=== PATIENT | male | born 1940 | race Caucasian/White ===

== ENCOUNTER 2025-02-17 12:20 | Inpatient (IN) | payer BC, MEDICARE ==
[2025-02-17] VITALS: BP 118/63; TEMP 98.1; O2SAT 93
[~2025-02-17] VITALS: Ht 177.8 cm; Wt 97.5 kg
[2025-02-17] MEDS ORDERED: FENTANYL PF 100MCG/2ML AMPUL ONE (13:01)
[2025-02-17 13:02] LABS: BASOPHILS # (AUTO) 0.1 K/uL (0.0-0.2); BASOPHILS % (AUTO) 2.1 % (0.0-2.0); EOSINOPHILS # (AUTO) 0.1 K/uL (0.0-0.7); EOSINOPHILS % (AUTO) 3.9 % (0.0-6.0); HEMATOCRIT 25 % (39-51); HEMOGLOBIN 8.1 g/dL (13.5-17.5); LYMPHOCYTES # (AUTO) 0.7 K/uL (0.8-4.8); LYMPHOCYTES % (AUTO) 19.1 % (20.0-44.0); MEAN CORPUSCULAR HEMOGLOBIN 29 PG (26.0-33.0); MEAN CORPUSCULAR HGB CONC 32 g/dl (31.0-36.0); MEAN CORPUSCULAR VOLUME 89 fL (80-96); MONOCYTES # (AUTO) 0.3 K/uL (0.1-1.30); MONOCYTES % (AUTO) 8.6 % (2.0-12.0); NEUTROPHILS # (AUTO) 2.5 K/uL (1.8-8.9); NEUTROPHILS % (AUTO) 66.3 % (43.0-81.0); PLATELET COUNT (AUTO) 214 K/uL (150-450); RED BLOOD CELL COUNT(AUTO) 2.83 MIL/uL (4.5-6.0); RED CELL DISTRIBUTION WIDTH 16.4 % (11.5-15.0); WHITE BLOOD COUNT (AUTO) 3.7 K/uL (4.3-11.0)
[2025-02-17] MEDS: FENTANYL PF 100MCG/2ML AMPUL IV ONE (13:07)
[2025-02-17 13:13] LABS: CALCIUM, SERUM 8.7 mg/dL (8.5-10.1); POTASSIUM 5.8 mmol/L (3.5-5.1)
[2025-02-17 13:19] LABS: ALBUMIN 3.4 g/dL (3.4-5.0); BILIRUBIN,DIRECT 0.2 mg/dL (0.0-0.2); BILIRUBIN,TOTAL 0.4 mg/dL (0.2-1.0); TOTAL PROTEIN, SERUM 6.5 g/dL (6.4-8.2)
[2025-02-17 13:31] LABS: INR 1.12 (0.91-1.10); PARTIAL THROMBOPLASTIN TIME 29.6 SEC (24.3-34.3); PROTHROMBIN TIME 11.8 SECS (9.2-11.1)
[2025-02-17] MEDS ORDERED: MAG HYDROX/AL HYDROX/SIMETH 30 ML UDC PO PRN (14:00)
[2025-02-17] MEDS ORDERED: IV NS 0.9% 1,000 ML IV PRN (14:00)
[2025-02-17] MEDS ORDERED: ONDANSETRON HCL/PF 4 MG/2 ML VIAL IVP PRN (14:00)
[2025-02-17] MEDS ORDERED: SODIUM ZIRCONIUM CYCLOSILICATE 10 GM POWD.PACK PO ONE (14:00)
[2025-02-17] MEDS ORDERED: MAGNESIUM HYDROXIDE 30 ML UDC PO PRN (14:00)
[2025-02-17] MEDS ORDERED: Z GUARD REMEDY 4 OZ OINT TP PRN (14:00)
[2025-02-17] MEDS ORDERED: AMLO-212 PO (14:21)
[2025-02-17] MEDS ORDERED: CITA20TA16 PO (14:21)
[2025-02-17] MEDS ORDERED: LISI40TA13 PO (14:21)
[2025-02-17] MEDS ORDERED: APIX5TAB PO (14:21)
[2025-02-17] MEDS ORDERED: FURO40TA5 PO (14:21)
[2025-02-17] MEDS ORDERED: ATOR10TA PO (14:21)
[2025-02-17] MEDS ORDERED: DILT120C47 PO (14:21)
[2025-02-17] MEDS: IV NS 0.9% 1,000 ML BAG IV ONE (14:29)
[2025-02-17] MEDS: SODIUM ZIRCONIUM CYCLOSILICATE 10 GM POWD.PACK PO ONE (14:30)
[2025-02-17] MEDS ORDERED: MORPHINE SULFATE INJ 2 MG/ML DISP.SYRIN ONE (15:04)
[2025-02-17] MEDS: MORPHINE SULFATE INJ 2 MG/ML DISP.SYRIN IV ONE (15:08)
[2025-02-17 16:20] VITALS: BP 137/58; TEMP 98.1; O2SAT 95
[2025-02-17] MEDS: HYDROCODONE/APAP 10/325MG TABLET PO PRN (17:08)
[2025-02-17 17:43] LABS: CALCIUM, SERUM 8.3 mg/dL (8.5-10.1)
[2025-02-17 20:00] VITALS: TEMP 98.1
[2025-02-17] MEDS: HEPARIN SODIUM, PORCINE 5000 UNITS/1 ML VIAL SQ SCH (21:00)
[2025-02-18 04:54] VITALS: BP 116/59; TEMP 98; O2SAT 92
[2025-02-18 06:47] LABS: BASOPHILS % (AUTO) 0.9 % (0.0-2.0); EOSINOPHILS # (AUTO) 0.1 K/uL (0.0-0.7); EOSINOPHILS % (AUTO) 1.2 % (0.0-6.0); HEMATOCRIT 24 % (39-51); HEMOGLOBIN 7.5 g/dL (13.5-17.5); LYMPHOCYTES # (AUTO) 0.5 K/uL (0.8-4.8); LYMPHOCYTES % (AUTO) 10.1 % (20.0-44.0); MEAN CORPUSCULAR HEMOGLOBIN 29 PG (26.0-33.0); MEAN CORPUSCULAR HGB CONC 32 g/dl (31.0-36.0); MEAN CORPUSCULAR VOLUME 90 fL (80-96); MONOCYTES # (AUTO) 0.4 K/uL (0.1-1.30); MONOCYTES % (AUTO) 8.3 % (2.0-12.0); NEUTROPHILS # (AUTO) 3.7 K/uL (1.8-8.9); NEUTROPHILS % (AUTO) 79.5 % (43.0-81.0); PLATELET COUNT (AUTO) 196 K/uL (150-450); RED BLOOD CELL COUNT(AUTO) 2.63 MIL/uL (4.5-6.0); RED CELL DISTRIBUTION WIDTH 15.9 % (11.5-15.0); WHITE BLOOD COUNT (AUTO) 4.6 K/uL (4.3-11.0)
[2025-02-18 07:14] LABS: CALCIUM, SERUM 8.2 mg/dL (8.5-10.1); CREATININE 2.3 mg/dL (0.6-1.3); MAGNESIUM 2.5 mg/dL (1.8-2.4); PHOSPHORUS 5.3 mg/dL (2.5-4.9)
[2025-02-18 07:37] LABS: POTASSIUM 6.2 mmol/L (3.5-5.1)
[2025-02-18 08:14] VITALS: BP 112/43; TEMP 98.8; O2SAT 90
[2025-02-18] MEDS: CITALOPRAM HYDROBROMIDE 20 MG TABLET PO SCH (08:28)
[2025-02-18] MEDS: SODIUM POLYSTYRENE SULFONATE 15 G/60 ML BOTTLE PO ONE ×2 (08:28→16:10)
[2025-02-18] MEDS: ATORVASTATIN 10 MG TABLET PO SCH (08:28)
[2025-02-18] MEDS: AMLODIPINE BESYLATE 5 MG TABLET PO SCH (09:00)
[2025-02-18] MEDS: DILTIAZEM HCL CD 120 MG PO SCH (09:00)
[2025-02-18] MEDS ORDERED: DILTIAZEM SR 60 MG PO SCH (09:00)
[2025-02-18 09:49] LABS: IRON, SERUM 23 ug/dl (50-175); TOTAL IRON BINDING CAPACITY 290 ug/dl (250-450)
[2025-02-18] MEDS: BUMETANIDE INJ 8 MG in IV NS 0.9% 48 ML IV ONE (09:53)
[2025-02-18 10:38] LABS: CHOLESTEROL 89 mg/dL (<200); FERRITIN 42 ng/mL (8-388); HDL CHOLESTEROL 57 mg/dL (40-60); LDL 30 mg/dL (0-99); TRIGLYCERIDES 55 mg/dL (30-150)
[2025-02-18 12:00] VITALS: BP 117/57; TEMP 97.2; O2SAT 95
[2025-02-18] MEDS: MORPHINE SULFATE INJ 2 MG/ML DISP.SYRIN IV PRN (13:00)
[2025-02-18 13:22] LABS: CALCIUM, SERUM 8.4 mg/dL (8.5-10.1); CREATININE 2.6 mg/dL (0.6-1.3)
[2025-02-18 16:00] VITALS: BP 118/55; TEMP 98.6; O2SAT 92
[2025-02-18 20:00] VITALS: BP 103/69; TEMP 99; O2SAT 96
[2025-02-18 23:19] LABS: ABG OXYGEN SATURATION 91.9 % (94.0-98.0); ABG PCO2 51.4 mmHg (35.0-48.0); ABG PH 7.109 (7.350-7.450); ABG PO2 77.1 mmHg (83.0-108.0); ABG TOTAL HEMOGLOBIN 8.8 G/dL (13.5-17.5); COHb 0.1 % (0.5-1.5); MetHb 0.1 % (0.0-1.5); O2Hb 91.7 % (94.0-97.0); SITE, ABG LEFT BRACHIAL
[2025-02-18 23:45] LABS: BASOPHILS # (AUTO) 0.1 K/uL (0.0-0.2); BASOPHILS % (AUTO) 0.7 % (0.0-2.0); EOSINOPHILS % (AUTO) 0.1 % (0.0-6.0); HEMATOCRIT 27 % (39-51); HEMOGLOBIN 8.3 g/dL (13.5-17.5); LYMPHOCYTES # (AUTO) 0.3 K/uL (0.8-4.8); LYMPHOCYTES % (AUTO) 3.9 % (20.0-44.0); MEAN CORPUSCULAR HEMOGLOBIN 29 PG (26.0-33.0); MEAN CORPUSCULAR HGB CONC 31 g/dl (31.0-36.0); MEAN CORPUSCULAR VOLUME 92 fL (80-96); MONOCYTES # (AUTO) 0.5 K/uL (0.1-1.30); MONOCYTES % (AUTO) 5.6 % (2.0-12.0); NEUTROPHILS # (AUTO) 7.5 K/uL (1.8-8.9); NEUTROPHILS % (AUTO) 89.7 % (43.0-81.0); PLATELET COUNT (AUTO) 238 K/uL (150-450); RED BLOOD CELL COUNT(AUTO) 2.91 MIL/uL (4.5-6.0); RED CELL DISTRIBUTION WIDTH 16.9 % (11.5-15.0); WHITE BLOOD COUNT (AUTO) 8.4 K/uL (4.3-11.0)
[2025-02-18 23:54] LABS: CALCIUM, SERUM 8.4 mg/dL (8.5-10.1); CREATININE 3.2 mg/dL (0.6-1.3); POTASSIUM 5.6 mmol/L (3.5-5.1)
[2025-02-19] VITALS (67 sets, daily range): BP systolic 83–119; BP diastolic 43–71; TEMP 98–100.8; O2SAT 95–100
[2025-02-19] MEDS: SODIUM BICARBONATE SYR 50 MEQ/50 ML DISP.SYRIN IV ONE
[2025-02-19] MEDS: SODIUM BICARBONATE SYR 100 MEQ in IV D5W 1,000 ML IV SCH (01:18)
[2025-02-19] MEDS: ACETAMINOPHEN 325 MG TABLET PO PRN (02:30)
[2025-02-19] MEDS: NOREPINEPHRINE 8MG/250ML RTU 0 ML IV ONE (04:00)
[2025-02-19 04:17] LABS: APPEARANCE,URINE CLEAR (CLEAR); BILIRUBIN,URINE NEGATIVE (NEGATIVE); BLOOD, URINE NEGATIVE Ery/uL (NEGATIVE); COLOR,URINE YELLOW (YELLOW); KETONES,URINE NEGATIVE (NEGATIVE); LEUKOCYTE ESTERASE ,URINE NEGATIVE (NEGATIVE); NITRITE, URINE NEGATIVE (NEGATIVE); PH,URINE 5.5 (5.0-8.0); PROTEIN,URINE NEGATIVE (NEGATIVE); UGLUCOSE NEGATIVE (NEGATIVE); UROBILINOGEN,URINE 0.2 EU/dL (0.2)
[2025-02-19] MEDS: NOREPINEPHRINE 4 MG/4 ML AMPUL IV ONE (04:18)
[2025-02-19] MEDS: NOREPINEPHRINE 8 MG in IV D5W 242 ML IV PRN (04:19)
[2025-02-19 04:28] LABS: ABG BASE EXCESS -8.2 mmol/L (-2.0-3.0); ABG OXYGEN SATURATION 98.7 % (94.0-98.0); ABG PCO2 38.8 mmHg (35.0-48.0); ABG PH 7.281 (7.350-7.450); ABG PO2 163.2 mmHg (83.0-108.0); ABG TOTAL HEMOGLOBIN 8.3 G/dL (13.5-17.5); COHb 0.3 % (0.5-1.5); MetHb 0.2 % (0.0-1.5); O2Hb 98.2 % (94.0-97.0); SITE, ABG LEFT BRACHIAL
[2025-02-19 04:33] LABS: BILIRUBIN,TOTAL 0.5 mg/dL (0.2-1.0); CALCIUM, SERUM 8.2 mg/dL (8.5-10.1); CREATININE 3.3 mg/dL (0.6-1.3); MAGNESIUM 2.5 mg/dL (1.8-2.4); POTASSIUM 5.1 mmol/L (3.5-5.1); TOTAL PROTEIN, SERUM 6.1 g/dL (6.4-8.2)
[2025-02-19 04:38] LABS: BASOPHILS % (AUTO) 0.2 % (0.0-2.0); HEMATOCRIT 25 % (39-51); HEMOGLOBIN 7.7 g/dL (13.5-17.5); LYMPHOCYTES # (AUTO) 0.2 K/uL (0.8-4.8); MEAN CORPUSCULAR HEMOGLOBIN 28 PG (26.0-33.0); MEAN CORPUSCULAR HGB CONC 31 g/dl (31.0-36.0); MEAN CORPUSCULAR VOLUME 92 fL (80-96); MONOCYTES # (AUTO) 0.5 K/uL (0.1-1.30); MONOCYTES % (AUTO) 6.5 % (2.0-12.0); NEUTROPHILS % (AUTO) 90.3 % (43.0-81.0); PLATELET COUNT (AUTO) 184 K/uL (150-450); RED BLOOD CELL COUNT(AUTO) 2.73 MIL/uL (4.5-6.0); RED CELL DISTRIBUTION WIDTH 16.2 % (11.5-15.0); WHITE BLOOD COUNT (AUTO) 7.7 K/uL (4.3-11.0)
[2025-02-19] MEDS: Sodium Bicarbonate 100 MEQ in IV D5W 1,000 ML IV SCH (11:19)
[2025-02-19 12:12] LABS: INR 1.23 (0.91-1.10); PROTHROMBIN TIME 12.9 SECS (9.2-11.1)
[2025-02-19] MEDS ORDERED: Sodium Bicarbonate 100 MEQ in IV D5W 1,000 ML IV SCH (20:00)
[2025-02-20] VITALS (44 sets, daily range): BP systolic 74–134; BP diastolic 44–75; TEMP 98.3–99.2; O2SAT 92–99
[2025-02-20] MEDS: SODIUM BICARBONATE SYR 50 MEQ/50 ML DISP.SYRIN ONE (01:10)
[2025-02-20 05:12] LABS: PTH, INTACT 66 pg/mL (15-65)
[2025-02-21] VITALS: BP 95/57; TEMP 99; O2SAT 94
[2025-02-21 04:00] VITALS: BP 103/50; TEMP 98.6; O2SAT 100
[2025-02-21 06:52] LABS: BASOPHILS % (AUTO) 0.3 % (0.0-2.0); EOSINOPHILS # (AUTO) 0.2 K/uL (0.0-0.7); EOSINOPHILS % (AUTO) 2.8 % (0.0-6.0); HEMATOCRIT 25 % (39-51); HEMOGLOBIN 8.1 g/dL (13.5-17.5); LYMPHOCYTES # (AUTO) 0.4 K/uL (0.8-4.8); LYMPHOCYTES % (AUTO) 6.6 % (20.0-44.0); MEAN CORPUSCULAR HEMOGLOBIN 28 PG (26.0-33.0); MEAN CORPUSCULAR HGB CONC 33 g/dl (31.0-36.0); MEAN CORPUSCULAR VOLUME 85 fL (80-96); MONOCYTES # (AUTO) 0.6 K/uL (0.1-1.30); NEUTROPHILS # (AUTO) 5.3 K/uL (1.8-8.9); NEUTROPHILS % (AUTO) 81.3 % (43.0-81.0); PLATELET COUNT (AUTO) 179 K/uL (150-450); RED BLOOD CELL COUNT(AUTO) 2.91 MIL/uL (4.5-6.0); RED CELL DISTRIBUTION WIDTH 16.1 % (11.5-15.0); WHITE BLOOD COUNT (AUTO) 6.5 K/uL (4.3-11.0)
[2025-02-21 08:00] VITALS: BP 114/53; TEMP 97.9; O2SAT 100
[2025-02-21 08:13] LABS: ALANINE AMINOTRANSFERASE 17 U/L (12-78); ALBUMIN 2.4 g/dL (3.4-5.0); ALKALINE PHOSPHATASE 70 U/L (46-116); ASPARTATE AMINOTRANSFERASE 33 U/L (15-37); BILIRUBIN,TOTAL 0.7 mg/dL (0.2-1.0); CALCIUM, SERUM 7.7 mg/dL (8.5-10.1); CARBON DIOXIDE 24 mmol/L (21-32); CHLORIDE 105 mmol/L (98-107); CREATININE 3.6 mg/dL (0.6-1.3); GLUCOSE 102 mg/dL (74-106); MAGNESIUM 2.1 mg/dL (1.8-2.4); PHOSPHORUS 4.8 mg/dL (2.5-4.9); POTASSIUM 4.1 mmol/L (3.5-5.1); SODIUM SERUM 137 mmol/L (136-145); TOTAL PROTEIN, SERUM 5.4 g/dL (6.4-8.2); UREA NITROGEN, BLOOD 74 mg/dL (7-18)
[2025-02-21 12:00] VITALS: BP 114/53; TEMP 97.9; O2SAT 100
[2025-02-21 15:12] VITALS: BP 81/57
[2025-02-21] MEDS: MIDODRINE HCL (5MG) 5 MG TABLET PO ONE (15:12)
== END 2025-02-21 15:44 | disposition hospice, home (50) | DRG 535 ==
LOC: ER 12:24 → MED 16:09 → TELE 16:18 → ICU 02-19 00:11 → MEDSG1 02-20 13:36 → TELE1 02-20 14:21 → TELE-TD 02-20 14:23 → MEDSG1 02-21 10:11
PROVIDERS: ADMIT Nurse Practitioner Acute Care; ATTEND Internal Medicine
PROC: 30233N1 Transfusion of Nonautologous Red Blood Cells into Peripheral Vein, Percutaneous Approach (ICD-10-PCS; 2025-02-18)
PROC: 05H933Z Insertion of Infusion Device into Right Brachial Vein, Percutaneous Approach (ICD-10-PCS; principal; 2025-02-19)
PROC: 5A09457 Assistance with Respiratory Ventilation, 24-96 Consecutive Hours, Continuous Positive Airway Pressure (ICD-10-PCS; 2025-02-19)
DX: S72.141A Displaced intertrochanteric fracture of right femur, initial encounter for closed fracture (principal); I50.33 Acute on chronic diastolic (congestive) heart failure; N17.0 Acute kidney failure with tubular necrosis; J96.01 Acute respiratory failure with hypoxia; J96.02 Acute respiratory failure with hypercapnia; I13.0 Hypertensive heart and chronic kidney disease with heart failure and stage 1 through stage 4 chronic kidney disease, or unspecified chronic kidney disease; E87.4 Mixed disorder of acid-base balance; F33.2 Major depressive disorder, recurrent severe without psychotic features; I48.20 Chronic atrial fibrillation, unspecified; E66.9 Obesity, unspecified; N18.9 Chronic kidney disease, unspecified; Z66 Do not resuscitate; Z51.5 Encounter for palliative care; M89.8X9 Other specified disorders of bone, unspecified site; Z79.01 Long term (current) use of anticoagulants; W18.30XA Fall on same level, unspecified, initial encounter; Y92.89 Other specified places as the place of occurrence of the external cause; Z96.611 Presence of right artificial shoulder joint; Z88.8 Allergy status to other drugs, medicaments and biological substances; E78.5 Hyperlipidemia, unspecified; D63.8 Anemia in other chronic diseases classified elsewhere; E83.41 Hypermagnesemia; E87.5 Hyperkalemia; I27.20 Pulmonary hypertension, unspecified; I73.9 Peripheral vascular disease, unspecified; Z53.20 Procedure and treatment not carried out because of patient's decision for unspecified reasons; Z68.31 Body mass index [BMI] 31.0-31.9, adult
CPT/HCPCS: 36415; 36600; 70450-TC; 71045-TC; 72192-TC; 73502; 73552; 73590-TC; 76770-TC; 80048-TC; 80053-TC; 80061-TC; 80076-TC; 82550-TC; 82553; 82728-TC; 82803-TC; 82962-TC; 83540-TC; 83605-TC; 83735-TC; 83880; 83970; 84100-TC; 84155; 84165; 85025-TC; 85610-TC; 85730-TC; 86850-TC; 87040-TC; 87081-TC; 93307-TC; 94760-TC; 94762-TC; 94799-TC; 99082-TC; A4223; G0378; J2270; J3010; J3490; J7030; J7050; J7060; J7070; P9016